=== PATIENT | female | born 1950 | race Two or more races ===

== ENCOUNTER 2019-04-21 17:36 | Emergency (ER) | payer MEDICAID ==
[2019-04-21] MEDS ORDERED: Sodium Chloride 0.9% 500 ML IV ONE (20:27)
--- NOTE | 2019-04-21 20:55 | EDM.PDOC ---
ED HPI GENERAL MEDICAL PROBLEM - General Chief Complaint: Genitourinary Problem Stated Complaint: SENT FROM CLINIC Time Seen by Provider: 04/21/19 19:15 Source of Information: Reports: Patient, Family, Shingle Cutter, Provider History Limitations: Reports: Language Barrier - History of Present Illness INITIAL COMMENTS - FREE TEXT/NARRATIVE: Patient is a very pleasant 68-year-old Georgian female who was called in following clinic with concerns for elevated creatinine. She had been seen for an established patient visit earlier this afternoon. Prior to this encounter all of her records and medical care has been in [place]. The daughter and her patient reports that she went to clinic today because they have been concerned that she is urinating all the time. She did not have any other symptoms or concerns expressed to myself or to the clinic today. No previous records were available except for clinic note and labs from earlier. She reports she is taking her medication as prescribed, and labels are in Georgian. Lengthy discussion with patient and explained lab results via manager van. Patient's daughter reports that she has tried to limit her diet, knows to avoid salt, and has rice and vegetables regularly. Patient states she is worried about needing dialysis as she has been warned about this before so tries to eat proper. She also has had longstanding high blood pressure and diabetes. She does not have a home glucose meter. 20lb weight loss in past 6 months due to decreased appetite (I am uncertain if this is intentional or not) She denies diarrhea, nausea, vomiting, headache, changes in vision, chest pain, feeling short of breath. Some chills. No fever or sweats. labs available from clinic today: CBC shows anemia of 10.7, normocytic. Normal WBC and platelets CMP shows creatinine of 3.05, GFR 15. sodium 135. Potassium, Gl, BUN, total protein, albumin, and liver function tests within normal limits Glucose 87 A1c 5.1 Urinalysis shows elevated protein. No glucose, no ketones, no leuk esterace or nitrates Manual blood pressure here is 200/100, patient is asymptomatic. - Related Data Allergies Allergy/AdvReac Type Severity Reaction Status Date / Time No Known Allergies Allergy Verified 04/21/19 18:57 Home Meds: Home Meds Metoprolol Succinate [Toprol XL] 50 mg PO DAILY 04/04/16 [History] Diltiazem HCl [Diltiazem ER] 300 mg PO DAILY 04/21/19 [History] Docusate Sodium 100 mg PO DAILY 04/21/19 [History] Furosemide [Lasix] 40 mg PO DAILY 04/21/19 [History] Levothyroxine 25 mcg PO ACBREAKFAST 04/21/19 [History] Linagliptin [Tradjenta] 5 mg PO DAILY 04/21/19 [History] amLODIPine [Norvasc] 10 mg PO DAILY 10 Days tab 04/21/19 [Rx] atorvaSTATin [Lipitor] 10 mg PO BEDTIME 04/21/19 [History] hydrALAZINE HCl [Hydralazine HCl] 100 mg PO DAILY 04/21/19 [History] traZODone 100 mg PO BEDTIME 04/21/19 [History] Past Medical History HEENT History: Reports: Other (See Below) Other HEENT History: 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 Cardiovascular History: Reports: High Cholesterol, Hypertension SPEECH THERAPY DIRECTOR History: Reports: Endocrine/Metabolic History: Reports: Diabetes, Type II, Obesity/BMI 30+ - Infectious Disease History Infectious Disease History: Reports: Chicken Pox - Past Surgical History Female Surgical History: Reports: Section Social & Family History - Family History Family Medical History: Unobtainable - Tobacco Use Smoking Status *Q: Never Smoker - Caffeine Use Caffeine Use: Reports: None - Alcohol Use Alcohol Use History: No - Recreational Drug Use Recreational Drug Use: No - Living Situation & Occupation Social History Comment: came from [place], here with daughter who brought her up to take care of her. Patient does not drive. ED ROS GENERAL - Review of Systems Review Of Systems: Unable To Obtain (complete ROS unable to obtain due to language barrier constraints. See HPI) ED EXAM, GENERAL - Physical Exam Exam: See Below Free Text/Narrative:: General: alert, pleasant no acute distress. head is atraumatic, pupils are equal and reactive and throat is without erythema. Neck supple. Heart very slow, rate 50's, (patient denies syncope), lungs clear throughout, abdomen soft and nontender. Peripheral pulses +2 in upper and lower extremities, no lower extremity edema. Sensation is intact to the bottom of her feet to light touch. Skin is dry and there is no lesions or rashes. She has no obvious joint swelling , her gait is normal, strength is equal side to side. Course - Vital Signs Text/Narrative:: as best as possible, reviewed the patient history, labs, lengthy discussion with patient and family, use an manager van to explain part of the labs. Given her overall clinical picture I think actually this is chronic kidney disease and not likely to have a superimposed acute component at this time except for maybe from too much diuretic combined with decreased PO intake. I offered the patient admission overnight acutely, versus the option of some IV rehydration here, holding diuretics for 2 days and then recheck in clinic on Sunday. She very much did not want to be in the hospital as she otherwise feels well. Given her relatively normal electrolyte panel, anemia that is consistent with chronic kidney disease (needs to be verified via records), urinalysis also consistent with CKD, I think close outpatient followup is appropriate. reviewed medications - none are renally cleared to significant degree We also discussed some about diet and which foods to avoid, I particularly emphasized importance of any salt. Given her A1c, I think it is appropriate to hold her diabetes medication as well at this time. 500 mL bolus given in the ER. Patient's blood pressure when checked manually with an appropriately sized cuff recommend followup Sunday with repeat creatinine and lytes (renal panel would be most appropriate to check phosphate levels also) and may want nephrology involvement given she probably has end stage renal disease and BP issues. Hold lasix next two days continue other BP meds recommend against increase in toprol given relative bradycardia all questions were answered, and patient and her daughter expressed agreement with this plan. Last Recorded V/S: Last Vital Signs Temp 36.7 C 04/21/19 17:36 Pulse 49 L 04/21/19 17:36 Resp 18 04/21/19 17:36 BP 220/58 H 04/21/19 21:10 Pulse Ox 99 04/21/19 17:36 - Orders/Labs/Meds Orders: Active Orders 24 hr Category Date Time Status Blood Glucose Check, Bedside [RC] ONETIME Care 04/21/19 20:27 Active amLODIPine [Norvasc] Med 04/22/19 21:40 Once 10 mg PO ONETIME ONE Meds: Medications Discontinued Medications Generic Name Dose Route Start Last Admin Trade Name Freq PRN Reason Stop Dose Admin Sodium Chloride 500 mls @ 999 mls/hr 04/21/19 20:27 04/21/19 21:03 Normal Saline IV 04/21/19 20:57 999 mls/hr .BOLUS ONE Administration Departure - Departure Time of Disposition: 21:42 Disposition: Home, Self-Care 01 Condition: Fair Clinical Impression: ESRD with anemia HTN (hypertension) Qualifiers: Hypertension type: essential hypertension Qualified Code(s): I10 - Essential ( primary) hypertension - Discharge Information *PRESCRIPTION DRUG MONITORING PROGRAM REVIEWED*: Not Applicable *COPY OF PRESCRIPTION DRUG MONITORING REPORT IN PATIENT ANAHI: Not Applicable Prescriptions: amLODIPine [Norvasc] 10 mg PO DAILY 10 Days tab Referrals: Vandana Silva NP [Primary Care Provider] - Forms: ED Department Discharge Additional Instructions: followup Sunday for recheck labs, recommend see dr on no water pill as directed for two days stop diabetes medicine also for next two days added 1 blood pressure medication once per day --Amlodipine 10mg - My Orders Last 24 Hours: My Active Orders 04/21/19 20:27 Blood Glucose Check, Bedside [RC] ONETIME 04/22/19 21:40 amLODIPine [Norvasc] 10 mg PO ONETIME ONE - Assessment/Plan Last 24 Hours: My Active Orders 04/21/19 20:27 Blood Glucose Check, Bedside [RC] ONETIME 04/22/19 21:40 amLODIPine [Norvasc] 10 mg PO ONETIME ONE
[2019-04-21 21:44] VITALS: BP 212/106; PULSE 53
[2019-04-21] MEDS ORDERED: amLODIPine 10 MG Tab ONE (21:54)
[2019-04-22] MEDS ORDERED: amLODIPine 10 MG Tab PO ONE (21:40)
== END 2019-04-21 22:10 | disposition home or self-care (01) ==
LOC: FB.ED 17:36
DX: I13.11 Hypertensive heart and chronic kidney disease without heart failure, with stage 5 chronic kidney disease, or end stage renal disease (principal); E11.22 Type 2 diabetes mellitus with diabetic chronic kidney disease; N18.6 End stage renal disease; D63.8 Anemia in other chronic diseases classified elsewhere; E78.00 Pure hypercholesterolemia, unspecified; E66.9 Obesity, unspecified; Z68.34 Body mass index [BMI] 34.0-34.9, adult; Z79.899 Other long term (current) drug therapy
CPT/HCPCS: 96360; 99282; A9270; J7040

== ENCOUNTER 2019-12-11 11:14 | Emergency (ER) | payer MEDICARE, MEDICAID ==
[2019-12-11] MEDS ORDERED: Ondansetron 4 MG Tab.DIS PO STA (12:33)
[2019-12-11] MEDS ORDERED: Ondansetron 4 MG/2 ML SDV IVPUSH ONE (12:33)
[2019-12-11] MEDS: Sodium Chloride 0.9% 1,000 ML IV SCH ×2 (12:40→16:17)
[2019-12-11] MEDS: Sodium Chloride 0.9% 10 ML Syringe FLUSH PRN ×2 (12:40→16:16)
--- NOTE | 2019-12-11 15:44 | EDM.PDOC ---
ED HPI GENERAL MEDICAL PROBLEM - General Chief Complaint: Gastrointestinal Problem Stated Complaint: persistent nausea and vomiting Time Seen by Provider: 12/11/19 11:35 Source of Information: Reports: Patient, Family History Limitations: Reports: No Limitations - History of Present Illness INITIAL COMMENTS - FREE TEXT/NARRATIVE: Patient presented to the ED because of persistent N/V x1 month which got worse for the past several days and couldn't keep anything down. She is also feeling weak and dizzy and fell yesterday and hit her head on the floor. There was no LOC after the fall. There is no associated abdominal pain, diarrhea or constipation. No urinary symptoms nor cough or cold. She has a history of ESRD and is supposed to hemodialysis a year ago while she was in [place] but she was scared of the idea of having one. - Related Data Allergies Allergy/AdvReac Type Severity Reaction Status Date / Time No Known Allergies Allergy Verified 12/11/19 11:33 Home Meds: Home Meds Metoprolol Succinate [Toprol XL] 50 mg PO BEDTIME 04/04/16 [History] Furosemide [Lasix] 40 mg PO BID 04/21/19 [History] Levothyroxine 25 mcg PO ACBREAKFAST 04/21/19 [History] atorvaSTATin [Lipitor] 10 mg PO BEDTIME 04/21/19 [History] dilTIAZem HCL [Diltiazem ER] 300 mg PO DAILY 04/21/19 [History] hydrALAZINE HCl [Hydralazine HCl] 100 mg PO TID 04/21/19 [History] traZODone 100 mg PO BEDTIME 04/21/19 [History] Omeprazole 20 mg DAILY 12/11/19 [History] Past Medical History HEENT History: Reports: Other (See Below) Other HEENT History: 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 Cardiovascular History: Reports: High Cholesterol, Hypertension Genitourinary History: Reports: None DIRECTOR ON AIR History: Reports: Musculoskeletal History: Reports: None Neurological History: Reports: None Psychiatric History: Reports: Depression Endocrine/Metabolic History: Reports: Diabetes, Type II, Obesity/BMI 30+ Hematologic History: Reports: None Immunologic History: Reports: None Oncologic (Cancer) History: Reports: None Dermatologic History: Reports: None - Infectious Disease History Infectious Disease History: Reports: Chicken Pox - Past Surgical History Head Surgeries/Procedures: Reports: None HEENT Surgical History: Reports: None GI Surgical History: Reports: None Female Surgical History: Reports: Section Endocrine Surgical History: Reports: None Neurological Surgical History: Reports: None Musculoskeletal Surgical History: Reports: None Oncologic Surgical History: Reports: None Dermatological Surgical History: Reports: None Social & Family History - Family History Family Medical History: Noncontributory - Tobacco Use Smoking Status *Q: Never Smoker Second Hand Smoke Exposure: No - Caffeine Use Caffeine Use: Reports: None - Recreational Drug Use Recreational Drug Use: No ED ROS GENERAL - Review of Systems Review Of Systems: See Below Constitutional: Reports: No Symptoms HEENT: Reports: No Symptoms Respiratory: Reports: No Symptoms Cardiovascular: Reports: No Symptoms Endocrine: Reports: No Symptoms GI/Abdominal: Reports: Nausea, Vomiting : Reports: No Symptoms Musculoskeletal: Reports: No Symptoms Skin: Reports: No Symptoms Neurological: Reports: No Symptoms Psychiatric: Reports: No Symptoms ED EXAM, GI/ABD - Physical Exam Exam: See Below Exam Limited By: No Limitations Ears: Normal External Exam, Normal Canal Nose: Normal Inspection, Normal Mucosa Throat/Mouth: Normal Inspection, Normal Lips Head: Atraumatic, Normocephalic Neck: Normal Inspection Respiratory/Chest: No Respiratory Distress Cardiovascular: Normal Peripheral Pulses GI/Abdominal Exam: Normal Bowel Sounds, Soft, Non-Tender Extremities: Normal Inspection Neurological: Alert, Oriented, CN II-XII Intact Psychiatric: Normal Affect Course - Vital Signs Text/Narrative:: Labs/EKG/CXR/Headt CT result was discussed with the patient and verbalized ful understanding NS 1 L bolus zofran 4 mg IV x1 hydralazine 20 mg iv x1 Case discussed with Dr Ruvalcaba I did discussed the case with Dr Osorio that since she is a HD patient, it's better for her to be transferred to [place] so she can be evaluated by a Senior Materials Analyst Code wilianus: Full Code Last Recorded V/S: Last Vital Signs Temp 36.5 C 12/11/19 11:34 Pulse 79 12/11/19 15:15 Resp 18 12/11/19 15:15 BP 223/83 H 12/11/19 15:15 Pulse Ox 100 12/11/19 15:15 - Orders/Labs/Meds Orders: Active Orders 24 hr Category Date Time Status EKG Documentation Completion [RC] ASDIRECTED Care 12/11/19 11:48 Active Sodium Chloride 0.9% [Normal Saline] 1,000 ml Med 12/11/19 12:00 Active IV ASDIRECTED Sodium Chloride 0.9% [Saline Flush] Med 12/11/19 11:46 Active 10 ml FLUSH ASDIRECTED PRN Saline Lock Insert [OM.PC] Routine Oth 12/11/19 11:46 Ordered EKG 12 Lead [EK] Routine Ther 12/11/19 11:47 Ordered Medication Orders Sodium Chloride (Normal Saline) 1,000 mls @ 999 mls/hr IV ASDIRECTED ELODIA Last Admin: 12/11/19 12:40 Dose: 999 mls/hr Sodium Chloride (Saline Flush) 10 ml FLUSH ASDIRECTED PRN PRN Reason: Keep Vein Open Last Admin: 12/11/19 12:40 Dose: 10 ml Labs: Laboratory Tests 12/11/19 12/11/19 12/11/19 Range/Units 11:40 11:40 11:40 WBC 9.6 (4.5-12.0) X10-3/uL RBC 4.14 (3.23-5.20) x10(6)uL Hgb 12.8 (11.5-15.5) g/dL Hct 38.2 (30.0-51.3) % MCV 92.3 (80-96) fL MCH 30.8 (27.7-33.6) pg MCHC 33.4 (32.2-35.4) g/dL RDW 12.5 (11.5-15.5) % Plt Count 213 (125-369) X10(3)uL MPV 8.3 (7.4-10.4) fL Neut % (Auto) 79.3 (46-82) % Lymph % (Auto) 14.3 (13-37) % [place] % (Auto) 5.7 (4-12) % Eos % (Auto) 0 L (1.0-5.0) % Baso % (Auto) 0 (0-2) % Neut # (Auto) 7.7 (1.6-8.3) # Lymph # (Auto) 1.4 (0.6-5.0) # [place] # (Auto) 0.5 (0.0-1.3) # Eos # (Auto) 0.0 (0.0-0.8) # Baso # (Auto) 0.0 (0.0-0.2) # ABG pH (7.35-7.45) ABG pCO2 (35-45) mmHg ABG pO2 (83-108) mmHg ABG HCO3 (22-26) mmol/L ABG O2 Saturation (96-97) % ABG Base Excess (-2-2) Antoine Test O2 Delivery Device Sodium 137 (135-145) mmol/L Potassium 3.8 (3.5-5.3) mmol/L Chloride 99 L (100-110) mmol/L Carbon Dioxide 25 (21-32) mmol/L BUN 40 H (7-18) mg/dL Creatinine 3.9 H* (0.55-1.02) mg/dL Est Cr Clr Drug Dosing 11.58 mL/min Estimated GFR (MDRD) 11 L (>60) BUN/Creatinine Ratio 10.3 (9-20) Glucose 86 (80-116) mg/dL Calcium 9.3 (8.6-10.2) mg/dL Total Bilirubin 1.0 (0.1-1.3) mg/dL AST 19 (5-25) IU/L ALT 12 (12-36) U/L Alkaline Phosphatase 78 (56-112) IU/L Troponin I 56.1 (4.0-60.3) pg/mL Total Protein 7.3 (6.0-8.0) g/dL Albumin 3.0 L (3.2-4.6) g/dL Globulin 4.3 g/dL Albumin/Globulin Ratio 0.7 Lipase (73-393) U/L Urine Color (YELLOW) Urine Appearance (CLEAR) Urine pH (5.0-6.5) Ur Specific [place] (1.010-1.025) Urine Protein (NEGATIVE) mg/dL Urine Glucose (UA) (NORMAL) mg/dL Urine Ketones (NEGATIVE) mg/dL Urine Occult Blood (NEGATIVE) Urine Nitrite (NEGATIVE) Urine Bilirubin (NEGATIVE) Urine Urobilinogen (NEGATIVE) mg/dL Ur Leukocyte Esterase (NEGATIVE) Urine RBC (0-5) Urine WBC (0-5) Ur Squamous Epith Cells (NS,R,O) Urine Bacteria (NS) 12/11/19 12/11/19 12/11/19 Range/Units 11:40 12:15 12:50 WBC (4.5-12.0) X10-3/uL RBC (3.23-5.20) x10(6)uL Hgb (11.5-15.5) g/dL Hct (30.0-51.3) % MCV (80-96) fL MCH (27.7-33.6) pg MCHC (32.2-35.4) g/dL RDW (11.5-15.5) % Plt Count (125-369) X10(3)uL MPV (7.4-10.4) fL Neut % (Auto) (46-82) % Lymph % (Auto) (13-37) % [place] % (Auto) (4-12) % Eos % (Auto) (1.0-5.0) % Baso % (Auto) (0-2) % Neut # (Auto) (1.6-8.3) # Lymph # (Auto) (0.6-5.0) # [place] # (Auto) (0.0-1.3) # Eos # (Auto) (0.0-0.8) # Baso # (Auto) (0.0-0.2) # ABG pH 7.46 H (7.35-7.45) ABG pCO2 30 L (35-45) mmHg ABG pO2 99 (83-108) mmHg ABG HCO3 21 L (22-26) mmol/L ABG O2 Saturation 98 H (96-97) % ABG Base Excess -1.4 (-2-2) Antoine Test Passed O2 Delivery Device Room air Sodium (135-145) mmol/L Potassium (3.5-5.3) mmol/L Chloride (100-110) mmol/L Carbon Dioxide (21-32) mmol/L BUN (7-18) mg/dL Creatinine (0.55-1.02) mg/dL Est Cr Clr Drug Dosing mL/min Estimated GFR (MDRD) (>60) BUN/Creatinine Ratio (9-20) Glucose (80-116) mg/dL Calcium (8.6-10.2) mg/dL Total Bilirubin (0.1-1.3) mg/dL AST (5-25) IU/L ALT (12-36) U/L Alkaline Phosphatase (56-112) IU/L Troponin I (4.0-60.3) pg/mL Total Protein (6.0-8.0) g/dL Albumin (3.2-4.6) g/dL Globulin g/dL Albumin/Globulin Ratio Lipase 119 (73-393) U/L Urine Color Yellow (YELLOW) Urine Appearance Slightly cloudy (CLEAR) Urine pH 6.0 (5.0-6.5) Ur Specific [place] 1.010 (1.010-1.025) Urine Protein 500 H (NEGATIVE) mg/dL Urine Glucose (UA) 100 H (NORMAL) mg/dL Urine Ketones 15 H (NEGATIVE) mg/dL Urine Occult Blood Moderate H (NEGATIVE) Urine Nitrite Negative (NEGATIVE) Urine Bilirubin Negative (NEGATIVE) Urine Urobilinogen Normal (NEGATIVE) mg/dL Ur Leukocyte Esterase Negative (NEGATIVE) Urine RBC 0-5 (0-5) Urine WBC 0-5 (0-5) Ur Squamous Epith Cells Many H (NS,R,O) Urine Bacteria Moderate H (NS) Meds: Medications Generic Name Dose Route Start Last Admin Trade Name Freq PRN Reason Stop Dose Admin Sodium Chloride 1,000 mls @ 999 mls/hr 12/11/19 12:00 12/11/19 16:17 Normal Saline IV 999 mls/hr ASDIRECTED ELODIA Administration Sodium Chloride 10 ml 12/11/19 11:46 12/11/19 16:16 Saline Flush FLUSH 10 ml ASDIRECTED PRN Administration Keep Vein Open Discontinued Medications Generic Name Dose Route Start Last Admin Trade Name Freq PRN Reason Stop Dose Admin Hydralazine HCl 20 mg 12/11/19 16:13 Apresoline IVPUSH 12/11/19 16:14 ONETIME ONE Ondansetron HCl 4 mg 12/11/19 12:33 12/11/19 12:39 Zofran Odt PO 12/11/19 12:34 4 mg NOW STA Administration Ondansetron HCl 4 mg 12/11/19 12:33 12/11/19 13:14 Zofran IVPUSH 12/11/19 12:34 4 mg ONETIME ONE Administration Promethazine HCl 25 mg 12/11/19 15:54 Phenergan IM 12/11/19 15:55 NOW STA Departure - Departure Time of Disposition: 15:50 Disposition: DC/Tfer to Acute Hospital 02 Condition: Good Clinical Impression: Dehydration, YOANA (acute kidney injury), ESRD (end stage renal disease) - Discharge Information Referrals: PCP,None [Primary Care Provider] - Forms: ED Department Discharge Sepsis Event Note - Evaluation Sepsis Screening Result: No Definite Risk - Focused Exam Vital Signs: Vital Signs Temp Pulse Resp BP Pulse Ox 12/11/19 15:15 79 18 223/83 H 100 12/11/19 14:03 82 18 214/74 H 100 12/11/19 11:34 36.5 C 92 18 193/93 H 100 Date Exam was Performed: 12/11/19 Time Exam was Performed: 16:31 - My Orders Last 24 Hours: My Active Orders 12/11/19 11:46 Sodium Chloride 0.9% [Saline Flush] 10 ml FLUSH ASDIRECTED PRN Saline Lock Insert [OM.PC] Routine 12/11/19 11:47 EKG 12 Lead [EK] Routine 12/11/19 11:48 EKG Documentation Completion [RC] ASDIRECTED 12/11/19 12:00 Sodium Chloride 0.9% [Normal Saline] 1,000 ml IV ASDIRECTED - Assessment/Plan Last 24 Hours: My Active Orders 12/11/19 11:46 Sodium Chloride 0.9% [Saline Flush] 10 ml FLUSH ASDIRECTED PRN Saline Lock Insert [OM.PC] Routine 12/11/19 11:47 EKG 12 Lead [EK] Routine 12/11/19 11:48 EKG Documentation Completion [RC] ASDIRECTED 12/11/19 12:00 Sodium Chloride 0.9% [Normal Saline] 1,000 ml IV ASDIRECTED
[2019-12-11] MEDS ORDERED: Promethazine 25 MG/ML SDV IM STA (15:54)
[2019-12-11] MEDS ORDERED: hydrALAZINE 20 MG/ML SDV IVPUSH ONE (16:13)
--- NOTE | 2019-12-11 16:13 | CR ---
INDICATION: Cough, nausea, vomiting. CHEST, ONE VIEW: AP upright portable view of the chest was obtained 12/11/19 - no comparisons. Heart did not appear enlarged. The aorta is tortuous with calcification in the arch. Evidence of exogenous obesity is noted. There is an appearance suggesting the possibility of minimal patchy infiltration in the left lower lung field and upper middle lung field on the right; however, no consolidation pneumonia or definite effusion was seen. Degenerative changes are noted noted in the shoulder joints bilaterally, somewhat more prominent on the right than left. IMPRESSION: Question possibility of minimal patchy infiltration bilaterally - correlate clinically, could represent pneumonia and/or fibrosis. MTDD
--- NOTE | 2019-12-11 16:19 | CT ---
INDICATION: Head injury/fall. CT HEAD WITHOUT CONTRAST: Spiral 3.75 mm axial sections were obtained through the brain without contrast with sagittal and coronal reconstructions 12/11/19 - no comparisons. Total exam DLP was 1296.53 mGy-cm. The paranasal sinuses, and the left mastoid air cells appear to be well aerated. The right mastoid air cells show relatively poor aeration, which may be on a developmental basis although mastoiditis on the right is difficult to entirely exclude - correlate clinically. The cranium appears to be intact. The orbits appear to be intact. Calcifications are noted in the internal carotid arteries. No shift of midline structures is noted. The lateral ventricles appear to be fairly symmetrical and are slightly prominent suggesting a mild degree of atrophy. Septum cavum pellucidum is noted. Patchy decreased density in the white matter suggests a moderate to moderately severe degree of microvascular disease. Lacunar infarcts are suggested in the area of the anterior limb of the internal capsule on the right and the right basal ganglia. No finding to strongly suggest an acute intracranial abnormality was identified - no bleeding site, hematoma or acute thrombotic CVA is suggested. IMPRESSION: 1. Cerebrovascular disease with white matter changes compatible with microvascular changes and lacunar infarcts on the right. 2. Mild central atrophy. Report was called to Dr. Kerns at 1402 hours. [facility]
[2019-12-11 17:03] VITALS: BP 185/88; PULSE 110
[2019-12-11] MEDS ORDERED: Sodium Chloride 0.9% 1,000 ML IV SCH (17:45)
== END 2019-12-11 17:45 ==
LOC: FB.ED 11:14
DX: N17.9 Acute kidney failure, unspecified (principal); E86.0 Dehydration; I12.0 Hypertensive chronic kidney disease with stage 5 chronic kidney disease or end stage renal disease; N18.6 End stage renal disease; E78.00 Pure hypercholesterolemia, unspecified; F32.9 Major depressive disorder, single episode, unspecified; E66.9 Obesity, unspecified; Z79.899 Other long term (current) drug therapy; Z68.21 Body mass index [BMI] 21.0-21.9, adult; E11.22 Type 2 diabetes mellitus with diabetic chronic kidney disease
CPT/HCPCS: 36415; 36600; 70450; 71045; 80053; 81001; 82803; 83690; 84484; 85025; 93005; 96361; 96372; 96374; 96375; 99284; 99285-25; A9270-GY; J0360; J2405; J2550; J7030

== ENCOUNTER 2020-05-11 13:59 | Emergency (ER) | payer MEDICARE, MEDICAID, OTHER ==
--- NOTE | 2020-05-11 15:30 | EDM.PDOC ---
ED HPI GENERAL MEDICAL PROBLEM - General Chief Complaint: Respiratory Problem Stated Complaint: SOB Time Seen by Provider: 05/11/20 14:40 Source of Information: Reports: Patient, Family History Limitations: Reports: No Limitations - History of Present Illness INITIAL COMMENTS - FREE TEXT/NARRATIVE: Patient presented to the ED because of loss of appetite, weakness for the past 6 days. Four days ago she started to have dyspnea even on mild exertion. There is no recent fever,chills, cough or cold symptoms. She denies having any nausea,vomiting, diarrhea. She also noticed that lately her urine is becoming scanty in volume. She has a history of ESRD and is supposed to have dialysis 6 months ago but she was undecided then. - Related Data Allergies Allergy/AdvReac Type Severity Reaction Status Date / Time No Known Allergies Allergy Verified 05/11/20 14:13 Home Meds: Home Meds Metoprolol Succinate [Toprol XL] 50 mg PO BEDTIME 04/04/16 [History] Furosemide [Lasix] 40 mg PO BID 04/21/19 [History] Levothyroxine 25 mcg PO ACBREAKFAST 04/21/19 [History] atorvaSTATin [Lipitor] 10 mg PO BEDTIME 04/21/19 [History] dilTIAZem HCL [Diltiazem ER] 300 mg PO DAILY 04/21/19 [History] hydrALAZINE HCl [Hydralazine HCl] 100 mg PO TID 04/21/19 [History] traZODone 100 mg PO BEDTIME 04/21/19 [History] Omeprazole 20 mg PO DAILY 12/11/19 [History] Isosorbide Mononitrate [Isosorbide Mononitrate ER] 30 mg PO DAILY 05/11/20 [History] Sodium Bicarbonate 650 mg PO TID 05/11/20 [History] Past Medical History HEENT History: Reports: Other (See Below) Other HEENT History: 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 Cardiovascular History: Reports: High Cholesterol, Hypertension Genitourinary History: Reports: None [employer] History: Reports: Musculoskeletal History: Reports: None Neurological History: Reports: None Psychiatric History: Reports: Depression Endocrine/Metabolic History: Reports: Diabetes, Type II, Obesity/BMI 30+ Hematologic History: Reports: None Immunologic History: Reports: None Oncologic (Cancer) History: Reports: None Dermatologic History: Reports: None - Infectious Disease History Infectious Disease History: Reports: Chicken Pox - Past Surgical History Head Surgeries/Procedures: Reports: None HEENT Surgical History: Reports: None GI Surgical History: Reports: None Female Surgical History: Reports: Section Endocrine Surgical History: Reports: None Neurological Surgical History: Reports: None Musculoskeletal Surgical History: Reports: None Oncologic Surgical History: Reports: None Dermatological Surgical History: Reports: None Social & Family History - Family History Family Medical History: Noncontributory - Caffeine Use Caffeine Use: Reports: None ED ROS GENERAL - Review of Systems Review Of Systems: See Below Constitutional: Reports: No Symptoms HEENT: Reports: No Symptoms Respiratory: Reports: Shortness of Breath Cardiovascular: Reports: No Symptoms Endocrine: Reports: No Symptoms GI/Abdominal: Reports: No Symptoms : Reports: Other (oliguria) Musculoskeletal: Reports: No Symptoms Skin: Reports: No Symptoms Neurological: Reports: No Symptoms Psychiatric: Reports: No Symptoms ED EXAM, GENERAL - Physical Exam Exam: See Below Exam Limited By: No Limitations General Appearance: Alert, No Apparent Distress Eye Exam: Bilateral Eye: PERRL Ears: Normal External Exam, Normal Canal Nose: Normal Inspection, Normal Mucosa, No Blood Throat/Mouth: Normal Inspection, Normal Lips, Normal Teeth, Normal Gums Head: Atraumatic, Normocephalic Neck: Normal Inspection, Supple, Non-Tender, Full Range of Motion Respiratory/Chest: No Respiratory Distress, Decreased Breath Sounds Cardiovascular: Normal Peripheral Pulses, Regular Rate, Rhythm, No Edema, No Gallop, No JVD, No Murmur GI/Abdominal: Normal Bowel Sounds, Soft, Non-Tender, No Organomegaly Back Exam: Normal Inspection, Full Range of Motion Extremities: Normal Inspection, Normal Range of Motion, Non-Tender Neurological: Alert, Oriented, CN II-XII Intact, Normal Cognition, Normal Gait Psychiatric: Normal Affect Course - Vital Signs Text/Narrative:: Labs/EKG/CXR results was discussed with patient and verbalized full understanding. Zaroxolyn 2.5 mg po x1 Lasix 40 mg IV x1 Hydralazine 10 mg IV x1 Covid-negative Code Status-DNR/DNI Last Recorded V/S: Last Vital Signs Temp 36.7 C 05/11/20 17:19 Pulse 74 05/11/20 18:43 Resp 16 05/11/20 18:43 BP 189/73 H 05/11/20 18:43 Pulse Ox 99 05/11/20 18:43 - Orders/Labs/Meds Orders: Active Orders 24 hr Category Date Time Status Saline Lock Insert [OM.PC] Routine Oth 05/11/20 14:47 Ordered EKG 12 Lead [EK] Routine Ther 05/11/20 14:47 Ordered Labs: Laboratory Tests 05/11/20 05/11/20 05/11/20 Range/Units 14:57 14:57 14:57 WBC 5.8 (4.5-12.0) X10-3/uL RBC 3.18 L (3.23-5.20) x10(6)uL Hgb 9.6 L D (11.5-15.5) g/dL Hct 30.0 (30.0-51.3) % MCV 94.3 (80-96) fL MCH 30.0 (27.7-33.6) pg MCHC 31.9 L (32.2-35.4) g/dL RDW 13.9 (11.5-15.5) % Plt Count 163 (125-369) X10(3)uL MPV 7.5 (7.4-10.4) fL Neut % (Auto) 68.1 (46-82) % Lymph % (Auto) 18.5 (13-37) % [place] % (Auto) 9.3 (4-12) % Eos % (Auto) 4 (1.0-5.0) % Baso % (Auto) 1 (0-2) % Neut # (Auto) 4.0 (1.6-8.3) # Lymph # (Auto) 1.1 (0.6-5.0) # [place] # (Auto) 0.5 (0.0-1.3) # Eos # (Auto) 0.2 (0.0-0.8) # Baso # (Auto) 0.0 (0.0-0.2) # Sodium 136 (135-145) mmol/L Potassium 4.0 (3.5-5.3) mmol/L Chloride 100 (100-110) mmol/L Carbon Dioxide 29 (21-32) mmol/L BUN 43 H (7-18) mg/dL Creatinine 4.6 H* (0.55-1.02) mg/dL Est Cr Clr Drug Dosing TNP Estimated GFR (MDRD) 10 L (>60) BUN/Creatinine Ratio 9.3 (9-20) Glucose 76 L (80-116) mg/dL Calcium 8.9 (8.6-10.2) mg/dL Total Bilirubin 0.5 (0.1-1.3) mg/dL AST 16 D (5-25) IU/L ALT 7 L D (12-36) U/L Alkaline Phosphatase 61 (56-112) IU/L Troponin I 42.9 (4.0-60.3) pg/mL NT-Pro-B Natriuret Pep [id number] H* (<=125) pg/mL Total Protein 6.6 (6.0-8.0) g/dL Albumin 2.9 L (3.2-4.6) g/dL Globulin 3.7 g/dL Albumin/Globulin Ratio 0.8 SARS-CoV-2 RNA (TAL) (NEGATIVE) 05/11/20 Range/Units 15:41 WBC (4.5-12.0) X10-3/uL RBC (3.23-5.20) x10(6)uL Hgb (11.5-15.5) g/dL Hct (30.0-51.3) % MCV (80-96) fL MCH (27.7-33.6) pg MCHC (32.2-35.4) g/dL RDW (11.5-15.5) % Plt Count (125-369) X10(3)uL MPV (7.4-10.4) fL Neut % (Auto) (46-82) % Lymph % (Auto) (13-37) % [place] % (Auto) (4-12) % Eos % (Auto) (1.0-5.0) % Baso % (Auto) (0-2) % Neut # (Auto) (1.6-8.3) # Lymph # (Auto) (0.6-5.0) # [place] # (Auto) (0.0-1.3) # Eos # (Auto) (0.0-0.8) # Baso # (Auto) (0.0-0.2) # Sodium (135-145) mmol/L Potassium (3.5-5.3) mmol/L Chloride (100-110) mmol/L Carbon Dioxide (21-32) mmol/L BUN (7-18) mg/dL Creatinine (0.55-1.02) mg/dL Est Cr Clr Drug Dosing Estimated GFR (MDRD) (>60) BUN/Creatinine Ratio (9-20) Glucose (80-116) mg/dL Calcium (8.6-10.2) mg/dL Total Bilirubin (0.1-1.3) mg/dL AST (5-25) IU/L ALT (12-36) U/L Alkaline Phosphatase (56-112) IU/L Troponin I (4.0-60.3) pg/mL NT-Pro-B Natriuret Pep (<=125) pg/mL Total Protein (6.0-8.0) g/dL Albumin (3.2-4.6) g/dL Globulin g/dL Albumin/Globulin Ratio SARS-CoV-2 RNA (TAL) Negative (NEGATIVE) Meds: Medications Discontinued Medications Generic Name Dose Route Start Last Admin Trade Name Freq PRN Reason Stop Dose Admin Furosemide 40 mg 05/11/20 16:33 05/11/20 16:57 Lasix IVPUSH 05/11/20 16:34 40 mg NOW ONE Administration Hydralazine HCl 10 mg 05/11/20 16:33 05/11/20 17:02 Apresoline IVPUSH 05/11/20 16:34 10 mg NOW STA Administration Lorazepam 0.5 mg 05/11/20 17:34 05/11/20 18:21 Ativan IVPUSH 05/11/20 17:35 0.5 mg NOW STA Administration Metolazone 2.5 mg 05/11/20 16:33 05/11/20 16:57 Zaroxolyn PO 05/11/20 16:34 2.5 mg ONETIME ONE Administration Sodium Chloride 10 ml 05/11/20 14:47 05/11/20 18:22 Saline Flush FLUSH 10 ml ASDIRECTED PRN Administration Keep Vein Open Departure - Departure Time of Disposition: 15:35 Disposition: DC/Tfer to Acute Hospital 02 Condition: Good Clinical Impression: ESRD (end stage renal disease), CHF (congestive heart failure), Pulmonary edema, Hypertensive crisis - Discharge Information Referrals: PCP,None [Primary Care Provider] - Forms: ED Department Discharge - My Orders Last 24 Hours: My Active Orders 05/11/20 14:47 Saline Lock Insert [OM.PC] Routine EKG 12 Lead [EK] Routine - Assessment/Plan Last 24 Hours: My Active Orders 05/11/20 14:47 Saline Lock Insert [OM.PC] Routine EKG 12 Lead [EK] Routine
--- NOTE | 2020-05-11 15:34 | CR ---
INDICATION: Dyspnea. CHEST, ONE VIEW: AP portable upright view of the chest was obtained 05/11/20 and compared with 12/11/19. The heart appears enlarged compared with the previous study with prominent indistinct pulmonary vasculature, raising question of a mild degree to a moderate degree of CHF. Interstitial changes suggest the possibility of lung edema. Blunted costophrenic angles are compatible with small pleural effusions. Heavy markings in the lower lung gardner and mid lung field on the right raise question of minimal patchy bronchopneumonia, or possibly superimposed acute pulmonary edema. IMPRESSION: ASHD, cardiomegaly, CHF, and possible lung edema including possible acute pulmonary edema versus areas of patchy bronchopneumonia and pleuritis. MTDD
[2020-05-11] MEDS: Sodium Chloride 0.9% 10 ML Syringe FLUSH PRN ×3 (15:39→18:22)
[2020-05-11] MEDS ORDERED: hydrALAZINE 20 MG/ML SDV IVPUSH STA (16:33)
[2020-05-11] MEDS ORDERED: Furosemide 40 MG/4 ML VIAL IVPUSH ONE (16:33)
[2020-05-11] MEDS ORDERED: Metolazone 2.5 MG Tab PO ONE (16:33)
[2020-05-11] MEDS ORDERED: LORazepam 2 MG/ML SDV IVPUSH STA (17:34)
[2020-05-11 18:54] VITALS: BP 189/73; PULSE 74
== END 2020-05-11 18:47 ==
LOC: FB.ED 13:59
DX: I16.9 Hypertensive crisis, unspecified (principal); I13.0 Hypertensive heart and chronic kidney disease with heart failure and stage 1 through stage 4 chronic kidney disease, or unspecified chronic kidney disease; N18.9 Chronic kidney disease, unspecified; I50.1 Left ventricular failure, unspecified; E78.00 Pure hypercholesterolemia, unspecified; F32.9 Major depressive disorder, single episode, unspecified; E11.9 Type 2 diabetes mellitus without complications; E66.9 Obesity, unspecified; Z68.27 Body mass index [BMI] 27.0-27.9, adult; Z98.890 Other specified postprocedural states; Z20.828 Contact with and (suspected) exposure to other viral communicable diseases; Z79.899 Other long term (current) drug therapy
CPT/HCPCS: 36415; 71045; 80053; 83880; 84484; 85025; 93005; 96374; 96375; 99285; A9270; J0360; J1940; J2060; U0002; 99284